=== PATIENT | male | born 1970 | race Caucasian/White ===

== ENCOUNTER 2021-11-28 13:48 | Outpatient (CLI) | payer BC, SELFPAY ==
[2021-11-28 14:03] LABS: Hematocrit 52.1 % (42.0-52.0); Hemoglobin 15.9 g/dL (14.0-18.0); Mean Corpuscular HGB Conc 30.5 g/dl (32-36); Mean Corpuscular Hemoglobin 27.7 pg (26-34); Mean Corpuscular Volume 90.9 fl (80-100); Mean Platelet Volume 10.8 fl (7.4-10.4); Platelet Count Result 205 k/mm3 (150-375); Red Blood Count 5.73 M/mm3 (4.6-6.20); Red Cell Distribution Width 13.5 % (11.5-14.5); White Blood Count 7.1 K/mm3 (4.5-10.0)
== END 2021-11-28 13:49 | disposition home or self-care (01) ==
LOC: ANHLAB 13:49
PROVIDERS: PCP Internal Medicine; Visit Provider Internal Medicine Hematology & Oncology
DX: D75.1 Secondary polycythemia (principal)
CPT/HCPCS: 36415; 85027

== ENCOUNTER 2023-06-03 13:47 | Outpatient (CLI) | payer BC, SELFPAY ==
[2023-06-03 14:01] LABS: Hematocrit 49.2 % (42.0-52.0); Hemoglobin 15.2 g/dL (14.0-18.0); Mean Corpuscular HGB Conc 30.9 g/dl (32-36); Mean Corpuscular Hemoglobin 27.6 pg (26-34); Mean Corpuscular Volume 89.3 fl (80-100); Mean Platelet Volume 10.2 fl (7.4-10.4); Platelet Count Result 207 k/mm3 (150-375); Red Blood Count 5.51 M/mm3 (4.6-6.20); Red Cell Distribution Width 13.7 % (11.5-14.5); White Blood Count 6.2 K/mm3 (4.5-10.0)
== END 2023-06-03 13:48 | disposition home or self-care (01) ==
LOC: ANHLAB 13:49
PROVIDERS: PCP Internal Medicine; Visit Provider Internal Medicine Hematology & Oncology
DX: D75.1 Secondary polycythemia (principal)
CPT/HCPCS: 36415; 85027

== ENCOUNTER 2023-08-18 12:13 | Emergency (ER) | payer BC, SELFPAY ==
[2023-08-18 12:24] VITALS: BP 167/86; PULSE 106; RESP 18; TEMP 37.5; O2SAT 98
[2023-08-18 13:10] LABS: Influenza A QL RT-PCR Negative (Negative); Influenza B QL RT-PCR Negative (Negative); RSV RNA, RT-PCR Negative (Negative); SARS-CoV-2 RNA PCR Negative (Negative)
[2023-08-18] MEDS: ALBUTEROL SULFATE NEB 2.5 MG/3 ML INH INHALATION (15:07)
--- NOTE | 2023-08-18 15:15 | ED.GENADULT ---
HPI - General Adult General Chief complaint: Upper Respiratory Infection Stated complaint: cough, fever, sore throat Time Seen by Provider: 08/18/23 14:15 History of Present Illness HPI narrative: 53-year-old male present to the emergency department for evaluation of COVID symptoms. Patient states he took 3 COVID test at home 2 of them were positive 1 of them was not. Patient states he has symptoms started on worsen through Saturday and Saturday. Patient states he was restless and at last night due to increased cough and congestion. Patient denies any shortness of breath denies any chest pain. Patient states he has a special needs son at home and was concerned about passing illness onto him. Related Data Home Medications Medication Instructions Recorded Confirmed Jardiance 25 mg PO DAILY 02/03/21 01/04/23 Tresiba U-100 Insulin 60 units BYMOUTH DAILY 02/03/21 01/04/23 Trulicity 1.5 mg PO WEEKLY 02/03/21 01/04/23 Vitamin D2 1.25 mg PO WEEKLY 02/03/21 01/04/23 aspirin 81 mg PO DAILY 02/03/21 01/04/23 atorvastatin 40 mg PO DAILY 02/03/21 01/04/23 glimepiride 2 mg PO DAILY 02/03/21 01/04/23 losartan 25 mg PO DAILY 02/03/21 01/04/23 icosapent ethyl 1 gram capsule 2 g PO BID 01/01/22 01/04/23 (Vascepa) Allergies Allergy/AdvReac Type Severity Reaction Status Date / Time codeine Allergy Unknown Jittery Verified 08/18/23 14:15 metformin Allergy Anaphylaxis Verified 08/18/23 14:15 Review of Systems Review of Systems: All systems reviewed & are unremarkable except as noted in HPI and below PMFSH Social History Social History Smoking status: Never smoker Gender identity (if verbalized by the patient): Male Spiritual care concerns: No Exam Narrative: APPEARANCE: Well appearing, no pain, no distress, well-nourished. HEAD: normocephalic, atraumatic. EYES: PERRLA/EOMI, conjunctivae clear. NOSE: Nasal congestion EARS:TMS clear with good light reflex. THROAT: Pharynx clear, no exudate. NECK: Supple. No adenopathy, no masses. RESPIRATORY: Airway patent, respirations nonlabored. Clear to auscultation bilaterally, no rales, rhonchi, wheezing. CARDIOVASCULAR: Regular rate and rhythm without murmurs rubs or gallops. ABDOMINAL: Soft, nontender, nondistended, normal bowel sounds MUSCULOSKELETAL: Moves all extremities. Strength/ROM intact, No edema, No calf tenderness. NEURO: Alert. Cranial nerves II through XII intact. Course Course Emergency Course: 53-year-old male presenting to the emergency department for evaluation of COVID symptoms. Patient's COVID test was negative here but patient states he did have 2 positive test at home. Patient was provided medications for symptom control and patient did request paxlovid, patient has taken this previously. Patient's COVID test was negative in the emergency department but saying he is very symptomatic and had 2 positive test at home patient was told to assume that he is COVID positive. Vital Signs Vital signs: Vital Signs Temperature 99.5 F 08/18/23 12:24 Pulse Rate 106 H 08/18/23 12:24 Respiratory Rate 18 08/18/23 12:24 Blood Pressure 167/86 H 08/18/23 12:24 Pulse Oximetry 98 08/18/23 12:24 Oxygen Delivery Room Air 08/18/23 12:24 Temperature 99.5 F 08/18/23 12:24 Pulse Rate 99 08/18/23 15:28 Respiratory Rate 20 08/18/23 15:28 Blood Pressure 167/86 H 08/18/23 12:24 Pulse Oximetry 99 08/18/23 15:28 Oxygen Delivery Room Air 08/18/23 14:14 Medical Decision Making Differential Diagnosis Differential Diagnosis: COVID, influenza, RSV, viral syndrome, pneumonia Vital Signs Vital Signs: Vital Signs Temperature 99.5 F 08/18/23 12:24 Pulse Rate 106 H 08/18/23 12:24 Respiratory Rate 18 08/18/23 12:24 Blood Pressure 167/86 H 08/18/23 12:24 Pulse Oximetry 98 08/18/23 12:24 Oxygen Delivery Room Air 08/18/23 12:24 Temperature 99.5 F 08/18/23 12:24 Pulse Rate 99 08/18/23 15:28 Respi
[2023-08-18] MEDS: KETOROLAC 30 MG/ML VIAL (*BKC) IM (15:23)
[2023-08-18] MEDS: BENZONATATE 100 MG CAPSULE PO (15:23)
[2023-08-18 15:28] VITALS: PULSE 99; RESP 20; O2SAT 99
== END 2023-08-18 15:35 | disposition home or self-care (01) ==
LOC: ANHED 15:33
PROVIDERS: Emergency Medicine; Emergency Provider Emergency Medicine; PCP Internal Medicine
DX: U07.1 COVID-19 (principal); J06.9 Acute upper respiratory infection, unspecified
CPT/HCPCS: 87637; 94640; 96372; 99283; A9270; J1885

== ENCOUNTER 2023-08-20 02:13 | Emergency (ER) | payer BC, SELFPAY ==
--- NOTE | ~2023-08-20 | XR_ITS ---
Portable chest x-ray Comparison: None Clinical History: Cough Findings: Possible minimal central congestive change and minimal bibasilar interstitial edema. No ot her consolidation or pleural effusion. Cardiomediastinal silhouette is stable. Bones and soft tissue s are unremarkable. Impression: Possible minimal central congestive change and minimal bibasilar interstitial edema. Reviewed, dictated and finalized at location . [facility] [employer] Impression: Possible minimal central congestive change and minimal bibasilar interstitial e elicia.
[2023-08-20 02:14] VITALS: BP 172/98; PULSE 110; RESP 16; TEMP 36.8; O2SAT 92
[2023-08-20 02:24] VITALS: PULSE 120; RESP 22; TEMP 36.8; O2SAT 94
[2023-08-20 02:25] VITALS: O2SAT 98
[2023-08-20 03:11] LABS: Influenza A QL RT-PCR Negative (Negative); Influenza B QL RT-PCR Negative (Negative); SARS-CoV-2 RNA PCR Negative (Negative)
[2023-08-20] MEDS: SODIUM CHLORIDE 0.9% IV 2,000 ML 999 ML IV CONT (03:35)
[2023-08-20 03:39] LABS: Strep Group A RT-PCR NOT DETECTED (Negative)
[2023-08-20] MEDS: KETOROLAC 15 MG/ML VIAL (*BKC) IV PUSH (03:39)
[2023-08-20 03:41] LABS: Basophils Percent Auto 0.5 % (0.2-1.2); Eosinophils Absolute Auto 0.1 K/mm3 (0-0.3); Eosinophils Percent Auto 0.9 % (0-4.4); Hematocrit 47.4 % (42.0-52.0); Hemoglobin 14.8 g/dL (14.0-18.0); Immature Granulocyte Absolute 0.02 K/mm3 (0.00-0.031); Immature Granulocyte Percent A 0.3 % (0-0.5); Lymphocytes Absolute Auto 1.22 K/mm3 (0.9-3.2); Lymphocytes Percent Auto 15.8 % (18.3-44.2); Mean Corpuscular HGB Conc 31.2 g/dl (32-36); Mean Corpuscular Hemoglobin 27.4 pg (26-34); Mean Corpuscular Volume 87.6 fl (80-100); Mean Platelet Volume 9.9 fl (7.4-10.4); Monocytes Absolute Auto 1.5 K/mm3 (0.1-0.6); Monocytes Percent Auto 19.1 % (2.6-8.5); Neutrophils Absolute Auto 4.9 K/mm3 (1.3-6.7); Neutrophils Percent Auto 63.4 % (45.5-73.1); Platelet Count Result 230 k/mm3 (150-375); Red Blood Count 5.41 M/mm3 (4.6-6.20); Red Cell Distribution Width 13.9 % (11.5-14.5); White Blood Count 7.7 K/mm3 (4.5-10.0)
[2023-08-20] MEDS: guaiFENesin/DEXTROMETHORPHAN 10 ML UDC PO (03:48)
[2023-08-20 03:53] LABS: Alanine Aminotransferase 28 U/L (6-50); Albumin Level 3.9 g/dL (3.5-5.1); Alkaline Phosphatase 79 U/L (38-126); Anion Gap 11 mmol/L (8-16); Aspartate Amino Transferase 25 U/L (17-59); Bilirubin,Total 0.8 mg/dL (0.2-1.3); Blood Urea Nitrogen 8 mg/dL (9-20); Carbon Dioxide 25 mmol/L (22-30); Chloride 102 mmol/L (98-107); Estimated Glomerular Filt Rate > 60; Glucose 139 mg/dL (65-110); Sodium 138 mmol/L (137-145)
[2023-08-20 04:50] VITALS: BP 163/96; PULSE 91; RESP 16; O2SAT 95
--- NOTE | 2023-08-20 05:06 | ED.GENADULT ---
HPI - General Adult General Chief complaint: Upper Respiratory Infection Stated complaint: upper resp Time Seen by Provider: 08/20/23 02:49 History of Present Illness HPI narrative: This is a 53-year-old male presenting with upper respiratory infection. Patient says that he is having symptoms since last Saturday. He was seen on Saturday here in the emergency department and diagnosed with a URI. There is some insert he may have COVID although the test here was negative. He was requested packs elevated as he believed he had COVID due to a indeterminate test at home. He has been taking Paxil and Tessalon Perles but feels like he is getting worse. He is still having cough which seems to be the main issue is is prevented him from sleeping. He is tolerating p.o. although he has not had much of an appetite. No chest pain difficulty breathing abdominal pain Related Data Home Medications Medication Instructions Recorded Confirmed Jardiance 25 mg PO DAILY 02/03/21 01/04/23 Tresiba U-100 Insulin 60 units BYMOUTH DAILY 02/03/21 01/04/23 Trulicity 1.5 mg PO WEEKLY 02/03/21 01/04/23 Vitamin D2 1.25 mg PO WEEKLY 02/03/21 01/04/23 aspirin 81 mg PO DAILY 02/03/21 01/04/23 atorvastatin 40 mg PO DAILY 02/03/21 01/04/23 glimepiride 2 mg PO DAILY 02/03/21 01/04/23 losartan 25 mg PO DAILY 02/03/21 01/04/23 icosapent ethyl 1 gram capsule 2 g PO BID 01/01/22 01/04/23 (Vascepa) Allergies Allergy/AdvReac Type Severity Reaction Status Date / Time codeine Allergy Unknown Jittery Verified 08/18/23 14:15 metformin Allergy Anaphylaxis Verified 08/18/23 14:15 [facility] Past Medical History Medical History Diabetes Hypertension Social History Social History Smoking status: Never smoker Gender identity (if verbalized by the patient): Male Spiritual care concerns: No Exam Narrative: APPEARANCE: No apparent distress. Coughing during the interview Head: atraumatic. EYES: EOMI, NOSE: Atraumatic NECK: Trachea midline RESPIRATORY: No increased rate of breathing, clear to auscultation CARDIOVASCULAR: RRR, no peripheral edema ABDOMINAL: Non-distended soft and MUSCULOSKELETAl: No obvious deformities NEURO: Alert. Moving 4/4 extremities SKIN:: Warm, dry. Normal color PSYCHIATRIC: Normal affect Course Vital Signs Vital signs: Vital Signs Temperature 98.3 F 08/20/23 02:14 Pulse Rate 110 H 08/20/23 02:14 Respiratory Rate 16 08/20/23 02:14 Blood Pressure 172/98 H 08/20/23 02:14 Pulse Oximetry 92 08/20/23 02:14 Oxygen Delivery Room Air 08/20/23 02:14 Temperature 98.2 F 08/20/23 02:24 Pulse Rate 91 08/20/23 04:50 Respiratory Rate 16 08/20/23 04:50 Blood Pressure 163/96 H 08/20/23 04:50 Pulse Oximetry 95 08/20/23 04:50 Oxygen Delivery Room Air 08/20/23 02:25 Medical Decision Making [facility] Narrative Medical decision making narrative: -Course: 53-year-old male presenting with URI symptoms. Viral swab still negative. Chest x-ray shows some possible congestive changes and atelectasis.. Lab work normal. He was given some fluids Toradol and cough syrup with improvement symptoms. Patient discharged. 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 Viral swabs negative. Strep negative -Interventions: 2 L normal saline, Toradol, Robitussin -Shared decision making / Disposition: Discharged Vital Signs Vital Signs: Vital Signs Temperature 98.3 F 08/20/23 02:14 Pulse Rate 110 H 08/20/23 02:14 Resp
[2023-08-20 06:32] VITALS: BP 142/89; PULSE 88; RESP 16; TEMP 36.6; O2SAT 99
== END 2023-08-20 06:33 | disposition home or self-care (01) ==
PROVIDERS: Emergency Provider Emergency Medicine; PCP Internal Medicine
DX: J06.9 Acute upper respiratory infection, unspecified (principal); E11.9 Type 2 diabetes mellitus without complications; I10 Essential (primary) hypertension; Z20.822 Contact with and (suspected) exposure to COVID-19
CPT/HCPCS: 36415; 71045; 80053; 85025; 87636; 87651; 96361; 96374; 99284; A9270; J1885; J7030

== ENCOUNTER 2025-01-01 11:46 | Outpatient (CLI) | payer BC, SELFPAY ==
--- NOTE | ~2025-01-01 | US_ITS ---
EXAMINATION:US venous doppler LE LT INDICATION:Left leg pain TECHNIQUE: Multiple grayscale, color flow and Doppler images of the left lower extremity deep venous systems were obtained and reviewed. COMPARISON:No prior studies for comparison. FINDINGS: The common femoral, superficial femoral and popliteal veins demonstrate normal respiratory variation, augmentation and compressibility. Color flow is also seen within the posterior tibial, pe roneal, greater saphenous and profunda veins. IMPRESSION: 1: No lower extremity deep venous thrombosis. Reviewed, dictated and finalized at location A.
== END 2025-01-01 11:47 | disposition home or self-care (01) ==
LOC: MICIMG 11:48
PROVIDERS: PCP Internal Medicine; Visit Provider Internal Medicine
DX: M79.89 Other specified soft tissue disorders (principal); M79.606 Pain in leg, unspecified
CPT/HCPCS: 93971

== ENCOUNTER 2025-02-22 09:01 | Outpatient (CLI) | payer BC, SELFPAY ==
--- NOTE | ~2025-02-22 | US_ITS ---
Ankle Brachial Index with Ultrasound Dopplers and Pulse Volume Recordings Technique: Pressures in the arm and lower extremity were obtained. Additionally, arterial and pulse v olume waveforms were obtained bilaterally. Findings: Segmental pressures Right posterior tibial: 142 Right dorsalis pedis: 133 Left posterior tibial: 142 Left dorsalis pedis: 140 There are biphasic waveforms bilaterally. HEBER Right 1.06 Left 1.06 TBI Right 1.07 Left 1.11 Impression: No significant peripheral arterial disease as detected by segmental pressures and Doppler , which may be artificially elevated secondary to patient's type 2 diabetes. Reviewed, dictated and finalized at location A. Impression: No significant peripheral arterial disease as detected by segmental pressures and Doppler, which may be artificially elevated secondary to patient 's type 2 diabetes.
--- OUTSIDE RECORDS SUMMARY | 2025-02-22 09:13 | XMS_ITS | Data Portability ---
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 Name Role Phone NINOSKA SHAVER Primary Care Provider NINOSKA SHAVER Referring Provider Assessment Encounter Date Assessment Date Assessment LastModified by Organization Details LastModified Time 01/27/2024 01/27/2024 11/09/2022: Dr Ross TSH/FT4: WNL CMP: Gluc 129 Lipids: WNL A1C 8.5 06/03/2023: Dr Aleman [facility] 08/20/2023: [facility] CMP: Gluc 139 01/23/2024: A1C 7.9 Gluc 121 PSA 1.0 Not available 01/27/2024 16:20:38 05/04/2024 05/04/2024 11/09/2022: Dr Ross TSH/FT4: WNL CMP: Gluc 129 Lipids: WNL A1C 8.5 06/03/2023: Dr Aleman CBC: [facility] 30.9 08/20/2023: [facility] CMP: Gluc 139 01/23/2024: A1C 7.9 Gluc 121 PSA 1.0 Not available 05/03/2024 15:35:46 09/17/2024 09/17/2024 Assessment: Very severe OSAHS, AHI = 48 Plan: The following were reviewed and explained to the patient: [facility] home sleep study 05/21/17 AHI = 28, supine AHI = 44 [facility] home sleep study 02/04/19 AHI = 48 PAP compliance downloaded and interpreted x 20 minutes. Data reviewed and explained to the patient. Average apnea/hypopnea index (AHI) is 4.3. Patient used PAP > 4 hours 70% of the time. PAP is set at 7-12 cmH2O. PAP will be reset at 8-12 cmH2O. Keep ramp off. Keep EPR +1 time broker. Keep humidifier level at 4. Oxygen supplementation: none Patient is benefiting from PAP therapy. Encouraged patient to maintain PAP use more than 70% of the time. Statement of PAP use and benefits will be sent to the home care store. Educated the patient on problems and solutions associated with positive airway pressure (PAP) use. Difficulty tolerating pressure, mask leaks, intolerance of interface, nasal congestion, claustrophobic response, dry mouth, and unintentional mask removal during sleep were covered. Dry mouth is a normal occurrence for people who just start out on PAP therapy because they are not used to air blowing in to the throat to hold open. Dry mouth is exacerbated for people who wear nasal PAP mask and whose jaw drops open during sleep. Not only does this create a much less efficient therapy because of leakage, it also causes dry mouth. There are a couple solutions to help prevent this type of problem. A simple solution would be to wear a chinstrap which essentially holds the jaw in place. A second solution would be a switch to a full face mask which covers both the nose and mouth. Although this is another easy solution, using a full face mask for some could seem claustrophobic or confining. There is no silver bullet solution as no single mask is right for everybody. Sometimes it takes a bit of experimentation to find a PAP mask which best meets the patient's needs as well as fits comfortably. Another tactic is to use a humidifier on your PAP machine. Most new PAP machines have integrated humidifiers. Humidification is hoffman when dealing with symptoms of dry mouth because the humidifier can supply both warm and room temperate air. Even a small amount of humidity in the airflow will help nasal passages to stay hydrated. If a person is using both a full face mask and a PAP machine with a heated humidifier and is still experiencing dry mouth, an ill-fitted PAP mask might be causing the problem. Leakage can be caused by a mask that is to large or small, the wrong style mask, the cushion is degraded or simply because the mask's straps aren't adjusted correctly. If leakage occurs, dry air from the room can leak in while humidification escapes. The result is reduced humidification within the circuit and resulting in dry throat and mouth. Finally, beyond factors involving the PAP machine and mask, dry mouth can also be caused or worsened by dehydration. The general recommendation to during eight 8 oz. glasses of water a day might be too little for many people. When people drink large amounts of coffee or other caffeine beverages, or sweat a lot during the day, making sure to rehydrate is an important part of PAP therapy. Patient tends to take of the PAP mask during sleep. We reassured patient that this is common. We address all other areas of headgear/nasal interface problems, especially nasal congestion. Patient can use humidification +/- chinstrap, put low-pressure alarm on blower unit to awaken patient to reposition mask and set alarm at night for patient to check headgear. Provided the patient with a list of local home care stores where positive airway pressure (PAP) units, accoutrement, and services are available. Home care store selection is based on patient's insurance carrier. Patient will setup an appointment with [facility] for supplies and pressure adjustments. A major predictor of success with use of PAP is follow-up with both the respiratory supplier and the treating physician. The download results can show the treating physician information about adherence to treatment, residual AHI while on treatment and presence of large mask leakage. This information is especially helpful if the patient has residual sleepiness despite treatment. General information on sleep disordered breathing, evaluation of sleep disordered breathing, treatment with PAP therapy, and living with PAP therapy were covered. We discussed with the patient the impact of weight on: Sleep disordered breathing Hypertension Hyperlipidemia DM Low back pain Left plantar fasciitis We discussed with the patient the benefit of PAP therapy on: Sleep disordered breathing Erythrocytosis Hypertension DM Educated the patient on sleep hygiene measures. Relaxing rituals to rest easy, understanding foods with positive and negative impact on sleep, creating a peaceful sleep environment, timing of exercise, using herbal sleep aids, and practicing sleep-friendly meditation were covered. To determine how much sleep is needed, the patient will assess where he falls on the spectrum, examine what lifestyle factors such as work schedules and stress are affecting the quality and quantity of sleep. In general, adults need 7-9 hours of sleep. Educated the patient regarding foods that promote sleep. These include but are not limited to cherries, bananas, toast, oatmeal, and warm milk. Educated the patient regarding foods and drinks to avoid before bedtime. These include but are not limited to aged cheese, chocolate, spicy foods, tomato-based sauces, soy, ginseng tea and processed meat. Advocated influenza vaccination annually and pneumonia vaccination JOANA. Advocated weight loss through diet and exercise. Patient's ideal body weight according to height and gender is up to 205 lbs. Encouraged patient to adjust caloric intake to maintain/achieve ideal body weight, emphasizing on fruits, vegetables, whole grains, and fat-free or low-fat products. These include lean meats, poultry, fish, beans, eggs, and nuts and foods that are low in saturated fats, trans-fats, cholesterol, salt (sodium), and glycemic index. Stressed the importance of regular exercise up to the patient's capacity limits. In this case, we recommend 20 min daily walking, 2 days a week of resistance training. Patient to monitor BP daily and bring records to PCP for further management. Follow-up: 1 year, August 2025 [email or web address] Not available 09/17/2024 11:50:19 09/21/2024 09/21/2024 11/09/2022: Dr Ross TSH/FT4: WNL CMP: Gluc 129 Lipids: WNL A1C 8.5 06/03/2023: Dr Aleman CBC: [facility] 30.9 08/20/2023: [facility] CMP: Gluc 139 01/23/2024: A1C 7.9 Gluc 121 PSA 1.0 05/04/2024: A1C 7.2 Not available 09/21/2024 12:27:07 02/03/2025 02/03/2025 11/09/2022: Dr Ross TSH/FT4: WNL CMP: Gluc 129 Lipids: WNL A1C 8.5 06/03/2023: Dr Aleman CBC: [facility] 30.9 08/20/2023: [facility] CMP: Gluc 139 01/23/2024: A1C 7.9 Gluc 121 PSA 1.0 05/04/2024: A1C 7.2 12/15/2024: A1C 7.0H Not available 02/03/2025 14:33:48 Plan of Treatment Reminders Order Date Submit Date Provider Last Modified By Organization Details Last Modified Time Details Appointments Any 15 2024 02:15P M Ninoska lynch MD Not available Not available Not available Any 2025 02:00P M Flako Martinez MD Not available Not available Not available Lab vitamin D, 25-hydrox y, total, serum 2024 025 [facility], [address], [place], [address], 02/03/2025 15:41:49 HbA1c (hemoglob in A1c), blood 2024 025 [place] [facility], [address], [place], [address], 02/03/2025 15:41:48 microalbu min, urine 2024 025 [place] [facility], [address], [place], [address], 02/03/2025 15:41:50 lipid panel, serum 2024 025 [facility], [address], [place], [address], 02/03/2025 15:41:48 CBC w/ auto diff 2024 025 [place] [facility], [address], [place], [address], 02/03/2025 15:41:48 CMP, serum or plasma 2024 025 [place] [facility], [address], [place], [address], 02/03/2025 15:41:49 T4, free, serum 2024 025 [facility], [address], [place], [address], 02/03/2025 15:41:50 TSH, ultra-sen sitive, serum 2024 025 [facility], [address], [place], [address], 02/03/2025 15:41:50 vitamin B12 + folate, serum or blood 2024 025 [facility], [address], [place], [address], 02/03/2025 15:41:49 lipid panel, serum 2024 025 [facility], [address], [place], [address], 12/16/2024 11:44:07 CBC w/ auto diff 2024 025 [facility], [address], [place], [address], 12/16/2024 11:44:05 CMP, serum or plasma 2024 025 [facility], [address], [place], [address], 12/16/2024 11:44:06 T4, free, serum 2024 025 [facility], [address], [place], [address], 12/16/2024 11:44:10 TSH, ultra-sen sitive, serum 2024 025 [facility], [address], [place], [address], 12/16/2024 11:44:11 vitamin D, 25-hydrox y, total, serum 2024 025 [facility], [address], [place], [address], 12/16/2024 11:44:12 noninvasi ve colorecta l cancer DNA + occult blood screening , QL, stool 2024 025 [facility] [address], [address], [place], [address], 09/21/2024 12:28:11 HbA1c (hemoglob in A1c), blood 2024 025 [place] [facility], [address], [place], [address], 12/16/2024 11:44:09 microalbu min, urine 2024 025 [facility], [address], [place], [address], 12/16/2024 11:44:13 vitamin B12 + folate, serum or blood 2024 025 [facility], [address], [place], [address], 12/16/2024 11:44:03 lipid panel, serum 2023 024 [place] [address] [facility], [address], [place], [address], 11/03/2024 11:14:14 CBC w/ auto diff 2023 024 [facility], [address], [place], [address], 05/05/2024 08:54:17 CMP, serum or plasma [address]23 [address], [address], [place], [address], 11/03/2024 11:14:14 T4, free, serum 2023 024 [place] [address] [facility], [address], [place], [address], 11/03/2024 11:14:14 TSH, ultra-sen sitive, serum 2023 024 [place] [address] [facility], [address], [place], [address], 11/03/2024 11:14:14 vitamin D, 25-hydrox y, total, serum 2023 024 [facility], [address], [place], [address], 11/03/2024 11:14:14 noninvasi ve colorecta l cancer DNA + occult blood screening , QL, stool 2023 024 [email or web address] (Cologuard Orders Only), [address], [address], [place], [address], 05/18/2024 10:01:49 HbA1c (hemoglob in A1c), blood 2023 024 [facility], [address], [place], [address], 11/03/2024 11:14:13 microalbu min, urine 2023 024 [facility], [address], [place], [address], 11/03/2024 11:14:14 vitamin B12 + folate, serum or blood 2023 024 [facility], [address], [place], [address], 05/05/2024 16:27:33 vitamin D, 25-hydrox y, total, serum 2023 024 [email or web address] [facility], [address], [place], [address], 07/27/2024 09:44:25 HbA1c (hemoglob in A1c), blood 2023 024 [place] [address] [facility], [address], [place], [address], 07/27/2024 09:44:24 microalbu min, urine 2023 024 [place] [address] [facility], [address], [place], [address], 07/27/2024 09:44:24 lipid panel, serum 2023 024 [place] [address] [facility], [address], [place], [address], 07/27/2024 09:44:24 CBC w/ auto diff 2023 024 [place] [address] [facility], [address], [place], [address], 07/27/2024 09:44:24 CMP, serum or plasma 2023 024 [place] [address] [facility], [address], [place], [address], 07/27/2024 09:44:24 T4, free, serum 2023 024 [place] [address] [facility], [address], [place], [address], 07/27/2024 09:44:24 TSH, ultra-sen sitive, serum 2023 024 [place] [address] [facility], [address], [place], [address], 07/27/2024 09:44:25 Referral hematolog ist referral - Please call patient to schedule an appointme nt. Thank you. 2024 025 MEHDI Aleman MD, [address], [place], [address], 02/05/2025 10:01:11 podiatris t referral - Please call patient to schedule an appointme nt Thank you. 2024 025 NIC Doss D[facility], [address], [address], [place], [address], 02/08/2025 09:53:39 hematolog ist referral - Please call patient to schedule an appointme nt. Thank you. 2024 025 MEHDI Aleman MD, [address], [place], [address], 09/21/2024 14:00:49 podiatris t referral - Please call patient to schedule an appointme nt Thank you. 2024 025 NIC Doss D[facility], [address], [address], [place], [address], 09/21/2024 16:11:47 hematolog ist referral 2023 024 [email or web address] Jose R Aleman MD, [address], [place], [address], 11/02/2024 08:35:22 podiatris t referral 2023 024 [email or web address] Jose R Doss DPM, [address], [address], [place], [address], 11/02/2024 08:35:21 pulmonolo gist referral 2023 024 sudha Martinez MD, [address], [place], [address], 02/26/2024 11:31:10 hematolog ist referral 2023 024 Stephane Aleman MD, [address], [place], [address], 09/28/2024 08:49:38 podiatris t referral 2023 024 Pk Doss DPM, [address], [address], [place], [address], 07/27/2024 09:44:40 Procedures colonosco py screening (PROC) 2023 024 [email or web address] Annette Toure MD, [address], [address], [place], [address], 01/25/2025 08:58:30 Surgeries None recorded. Imaging None recorded. Medication Orders Mounjaro 10 mg/0.5 mL subcutane ous pen injector 2023 [email or web address] [id number], [address] [place], [address], 05/04/2024 15:15:26 Patient TargetsNo targets recorded. 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 Referral for Type 2 diabetes mellitus without complication Referring Physician: Ninoska Shaver, Internal Medicine, Encounter Date: 01/27/2024 [employer] Referral for O bstructive sleep apnea syndrome Referring Physician: Ninoska Shaver Internal Medicine, Encounter Date: 01/27/2024 Referring Physician: Ninoska Shaver Internal Medicine, Encounter Date: 01/27/2024 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 Referring Physician: Ninoska Shaver Internal Medicine, Encounter Date: 09/21/2024 Please call patient to sched ule an appointment. Thank you. 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 Referring Physician: Ninoska Shaver Internal Medicine, Encounter Date: 02/03/2025 Please call patient to sched ule an appointment. Thank you. Referring Physician: Ninoska Shaver Internal Medicine, Encounter Date: 02/03/2025 Results Created Date Observation Date Name Description Value Unit Range Abnormal Flag Note LastModifiedBy Organization Detail LastModifiedTime 01/02/20 25 01/01/2025 imagi ng/di agnos tic resul t No observ ation record ed. [facility] [address], [place], [address], 01/01/2025 14:10:08 Result Notes None recorded. 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 44687423360 07 Active 2021 Not Available [facility] 3 12:33:25 Hypertens etelvina disorder 53021985 Active 2016 Not Available [facility] 3 12:33:25 Body mass index 40+ - severely obese 096229134 Active 2018 Not Available [facility] 3 12:33:25 Obstructi ve sleep apnea syndrome 14265483 Active 2020 Not Available [facility] 3 12:33:25 Obstructi ve sleep apnea syndrome 21537608 Completed 201811/02/2020 Not Available [facility] 3 01:11:43 COVID-19 558517003 Active 2021 Not Available [facility] 3 12:33:25 Thyroid nodule 807465989 Active 2022 Not Available [facility] 3 12:33:25 Erythrocy tosis 014212884 Active 2022 Not Available [facility] 3 12:33:25 Vitamin B12 deficienc y (non anemic) 40881323 Active 2022 Not Available [facility] 3 12:33:25 Periphera l venous insuffici ency 61234700 Active 2022 Pk Doss DPM [address], [address], [place], [address] , [employer] 3 15:29:54 Vitamin D deficienc y 11388191 Active 2023 Ninoska kang MD [address], [address], [place], [address] , [employer] 4 11:38:43 Mixed hyperlipi demia 613106525 Active 2023 Naya Mcdowell MA null, [employer] 4 10:53:21 Essential hypertens ion 36611165 Active 2024 Ninoska kang MD [address], [address], [place], [address] , [employer] 5 18:56:33 Hyperlipi demia 32492724 Active 2024 Ninoska kang MD [address] [facility], [address], [place], [address] , [facility] [employer] [facility] 5 18:56:33 Type 2 diabetes mellitus without complicat ion 711515549 Active 2024 Ninoska kang MD [address] [facility], [address], [place], [address] , [facility] [employer] [facility] 5 18:56:33 Serum vitamin B12 below reference range 236700306 Active 2024 Ninoska kang MD [address] [facility], [address], [place], [address] , [facility] [employer] [facility] 5 18:56:35 Cough 08085880 Active 2024 ESTUARDO Bush, [facility] [employer] [facility] 5 15:51:16 Notes:Medical History: COVID infections 07/2022, 07/2023, 05/2024 Rhinitis Thyroid nodule Erythrocytosis Obesity with very severe OSAHS, AHI = 48, 02/04/19, on autoCPAP c/o IVRC Hypertension Mixed hyperlipidemia T2DM with neuropathy Vit B12 deficiency Vit D deficiency Low back pain Left plantar fasciitis Procedure History: T&A 1974 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 Procedures Surgical History Date Name Laterality Status Provider Name and Address Organization Details Recorded Time 06/17/20 23 Nail Debridement completed Pk Doss DPM [address] [facility], [address] [address], [place], [address], [facility] [employer] [facility] 06/17/2023 15:30:15 Tonsillectomy completed Not Available [facility] 10/17/2022 01:05:31 Imaging Results None recorded. Procedure Notes None recorded. Medical Equipment None Reported. Allergies Allergen ID Allergen Name Allergen Category Reaction Reaction Severity Criticality Documentation Date Start Date Code Code System Note Provider Name and Address Organization Details Recorded Time 2012 metformin medicatio n hives moderate Not available 10/17/20222014 6809 RxNorm lips swell Not Available [facility] 3 01:20:38 Medications Name Sig Start Date Stop Date Status Note LastModified by Organization Details LastModified Time losartan 50 mg tablet Take 1 tablet every day by oral route. 07/21 completed Not Available Not Available Not Available cyclobenza lety 10 mg tablet TAKE 1 TABLET EVERY NIGHT BY ORAL ROUTE NEEDED, NO ALCOHOL DRIVING OR WITH SEDATING MEDICATI ONS active Not Available Not Available No t Available atorvastat in 40 mg tablet TAKE 1 TABLET BY MOUTH EVERY DAY active Not Available Not Available No t Available metformin 500 mg tablet Take 2 tablets twice a day by oral route. active Not Available Not Available No t Available prednisone 10 mg tablet active Not Available Not Available Not Available atorvastat in 20 mg tablet TAKE 1 TABLET BY MOUTH EVERY DAY 10/27 completed Not Available Not Available Not Available azithromyc in 250 mg tablet TAKE 2 TABLETS BY MOUTH TODAY, THEN TAKE 1 TABLET DAILY FOR 4 DAYS DIRECTED 02/03 completed Not Available Not Available Not Available ibuprofen 800 mg tablet active Not Available Not Available Not Available ampicillin 500 mg capsule active Not Available Not Available Not Available hydrocodon e 5 mg-acetami nophen 325 mg tablet active Not Available Not Available No t Available meloxicam 15 mg tablet TAKE 1 TABLET BY MOUTH EVERY OTHER DAY NEEDED active Not Available Not Available No t Available [employer] Lancets 28 gauge TEST TWICE A DAY 09/18 completed Not Available Not Available Not Available tramadol 50 mg tablet TAKE 1 TABLET BY MOUTH TWICE A DAY NEEDED ONLY 06/26 completed Not Available Not Available Not Available glimepirid e 2 mg tablet TAKE 1 TABLET BY MOUTH TWICE A DAY WITH FOOD active Not Available Not Available No t Available glimepirid e 1 mg tablet TAKE 2 TABLETS BY MOUTH TWICE A DAY BEFORE MEALS 08/24 completed Not Available Not Available Not Available dexamethas one 1 mg tablet TAKE 1 TABLET NEEDED BY ORAL ROUTE AT BEDTIME FOR 1 DAY. 08/26 completed Not Available Not Available Not Available benzonatat e 100 mg capsule 09/06 completed Not Available Not Available Not Available cyanocobal garcia (vit B-12) 1,000 mcg/mL injection solution INJECT 1 ML EVERY WEEK BY SUBCUTAN EOUS ROUTE IN THE MORNING 02/03 completed Not Available Not Available Not Available hydrochlor othiazide 12.5 mg capsule TAKE 1 CAPSULE BY MOUTH EVERY DAY 08/15 completed Not Available Not Available Not Available diclofenac sodium 75 mg tablet,del ayed release 11/08 completed Not Available Not Available Not Available ergocalcif jack (vitamin D2) 1,250 mcg (50,000 unit) capsule TAKE 1 CAPSULE BY MOUTH ONE TIME PER WEEK 05/04 completed Not Available Not Available Not Available oxycodone- acetaminop hen 7.5 mg-325 mg tablet active Not Available Not Available Not Available methylpred nisolone 4 mg tablets in a dose pack TAKE 6 TABLETS ON DAY 1 DIRECTED ON PACKAGE AND DECREASE BY 1 TAB EACH DAY FOR A TOTAL OF 6 DAYS 05/04 completed Not Available Not Available Not Available albuterol sulfate HFA 90 mcg/actuat ion aerosol inhaler 09/18 completed Not Available Not Available Not Available losartan 50 mg-hydroch lorothiazi de 12.5 mg tablet TAKE 1 TABLET BY MOUTH EVERY DAY active Not Available Not Available No t Available pioglitazo ne 30 mg tablet TAKE 1 TABLET BY MOUTH EVERY DAY IN THE MORNING active Not Available Not Available No t Available ketoconazo le 2 % topical cream APPLY TO THE AFFECTED AREA(S) twice daily 09/06 completed taken as needed Not Available Not Available Not Available losartan 100 mg tablet TAKE 1/2 TABLET BY MOUTH DAILY 08/15 completed Not Available Not Available Not Available amoxicilli n 875 mg-potassi um clavulanat e 125 mg tablet TAKE 1 TABLET BY MOUTH EVERY 12 HOURS FOR 7 DAYS 09/06 completed Not Available Not Available Not Available BD Ultra-Fine Mini Pen Needle 31 gauge x 3/16 USE WITH TRESIBA AND TRULICIT Y (ONE NEEDLE PER MEDICATI ON DAILY) 09/06 completed Not Available Not Available Not Available BD Ultra-Fine Short Pen Needle 31 gauge x 5/16 USE TO INJECT TRESIBA ONCE A DAY active Not Available Not Available No t Available fenofibrat e nanocrysta llized 145 mg tablet TAKE 1 TABLET BY MOUTH EVERY DAY 04/18 completed Not Available Not Available Not Available Januvia 100 mg tablet Take 1 tablet every day by oral route. active Not Available Not Available No t Available NovoFine 30 30 gauge x 1/3 needle USE ONCE DAILY FOR INJECTIO N 12/17 completed Not Available Not Available Not Available FreeStyle Lite Strips TEST TWICE A DAY 09/18 completed Not Available Not Available Not Available FreeStyle [place] Lite kit TEST TWICE A DAY 09/18 completed Not Available Not Available Not Available Zipsor 25 mg capsule TAKE ONE CAPSULE BY MOUTH TWICE DAILY NEEDED* MUST TAKE WITH FOOD 05/03 completed Not Available Not Available Not Available icosapent ethyl 1 gram capsule TAKE 2 CAPSULES BY MOUTH TWICE A DAY active Not Available Not Available No t Available BD Insulin Syringe Ultra-Fine 1 mL 31 gauge x 5/16 INJECT B12 INTO THE SKIN ONCE WEEKLY X 90 DAYS 08/25 completed Not Available Not Available Not Available Victoza 3-Ricky 0.6 mg/0.1 mL (18 mg/3 mL) subcutaneo us pen injector active Not Available Not Available Not Available Levemir FlexTouch U-100 Insulin 100 unit/mL (3 mL) subcutaneo us pen INJECT 30 UNITS EVERY DAY BY SUBCUTAN EOUS ROUTE. 04/30 completed Not Available Not Available Not Available Jardiance 25 mg tablet TAKE 1 TABLET BY MOUTH EVERY DAY IN THE MORNING active Not Available Not Available No t Available Trulicity 1.5 mg/0.5 mL subcutaneo us pen injector INJECT 1.5 MG EVERY WEEK BY SUBCUTAN EOUS ROUTE 11/13 completed Not Available Not Available Not Available Trulicity 0.75 mg/0.5 mL subcutaneo us pen injector Inject 0.5 mL every week by subcutan eous route. active Not Available Not Available No t Available Tresiba FlexTouch U-200 insulin 200 unit/mL (3 mL) subcutaneo us pen INJECT 60 UNIT(S) EVERY DAY BY SUBCUTAN EOUS ROUTE AT BEDTIME active Not Available Not Available No t Available Basaglar KwikPen U-100 Insulin 100 unit/mL (3 mL) subcutaneo us INJECT 30 UNITS SUBCUTAN EOUSLY EVERY DAY 01/13 completed Not Available Not Available Not Available Ozempic 0.25 mg or 0.5 mg (2 mg/1.5 mL) subcutaneo us pen injector Inject by subcutan eous route for 30 days. 11/13 completed Not Available Not Available Not Available Afluria Qd 2019-20 (36 mos up)(PF)60 mcg (15 mcg x4)/0.5 mL IM syringe active Not Available Not Available N ot Available Trulicity 3 mg/0.5 mL subcutaneo us pen injector Inject 3 mg every week by subcutan eous route in the morning for 90 days. 11/13 completed Not Available Not Available Not Available BinaxNOW COVID-19 Ag Self Test kit FOLLOW INSTRUCT IONS INCLUDED WITH THE PACKAGE. 11/13 completed Not Available Not Available Not Available Paxlovid 300 mg (150 mg x 2)-100 mg tablets in a dose pack TAKE 3 TABLETS BY MOUTH TWICE A DAY FOR 5 DAYS 08/25 completed Not Available Not Available Not Available Mounjaro 7.5 mg/0.5 mL subcutaneo us pen injector INJECT 7.5 MG EVERY WEEK BY SUBCUTAN EOUS ROUTE AT DINNER FOR 30 DAYS. 01/26 completed Not Available Not Available Not Available Mounjaro 5 mg/0.5 mL subcutaneo us pen injector INJECT 5MG EVERY WEEK BY SUBCUTAN EOUS ROUTE AT DINNER active Not Available Not Available No t Available Mounjaro 15 mg/0.5 mL subcutaneo us pen injector INJECT 1 SYRINGE SUBCUTAN EOUSLY ONCE A WEEK active Not Available Not Available No t Available Mounjaro 10 mg/0.5 mL subcutaneo us pen injector INJECT 10 MG EVERY WEEK BY SUBCUTAN EOUS ROUTE FOR 90 DAYS. 05/04 completed Not Available Not Available Not Available Mounjaro 12.5 mg/0.5 mL subcutaneo us pen injector 08/25 completed Not Available Not Available Not Available Mounjaro 2.5 mg/0.5 mL subcutaneo us pen injector Inject 2.5 mg every week by subcutan eous route at dinner for 30 days. 11/13 completed Not Available Not Available Not Available Vitals Date Recorded Heart rate Respiratory rate Provider N dana and Address Organization Details Last Updated DateTime 09/17/2024 77 /min 17 /min Flako Martinez MD [address] [facility], [facility] [address], [place], [address], MD - [facility] [email or web address] [facility] 09/17/2024 11:42:00 Date Recorded Body height Body mass index (BMI) Body weight Body temperature Heart rate Oxygen saturation Oxygen saturation in Arterial blood by Pulse oximetry Systolic And Diastolic Provider Name and Address Organization Details Last Updated DateTime 5 187.96 cm 45.6 kg/m2 836242. 29 g 98.4 [degF] 77 /min 96 % 96 % 128/86 mm[Hg] Faby Kerr MA [facility] [employer] [facility] 5 10:51:13 Date Recorded Body height Body mass index (BMI) Body weight Body temperature Heart rate Systolic And Diastolic Provider Name and Address Organization Details Last Updated DateTime 5 187.96 cm 44.4 kg/m2 345058. 96 g 97.7 [degF] 72 /min 130/78 mm[Hg] ESTUARDO Bush [facility] [employer] [facility] 5 12:14:22 Date Recorded Body height Body mass index (BMI) Body weight Body temperature Heart rate Oxygen saturation Oxygen saturation in Arterial blood by Pulse oximetry Systolic And Diastolic Provider Name and Address Organization Details Last Updated DateTime 4 187.96 cm 44.3 kg/m2 138392. 37 g 96 [degF] 81 /min 96 % 96 % 124/60 mm[Hg] Maira Holland MA [facility] [employer] [facility] 4 16:01:29 Date Recorded Body height Body mass index (BMI) Body weight Body temperature Heart rate Oxygen saturation Oxygen saturation in Arterial blood by Pulse oximetry Systolic And Diastolic Provider Name and Address Organization Details Last Updated DateTime 5 187.96 cm 44.4 kg/m2 135631. 96 g 98.2 [degF] 85 /min 96 % 96 % 128/78 mm[Hg] Maira Holland MA [facility] [employer] [facility] 5 15:15:25 Date Recorded Body height Body mass index (BMI) Body weight Body temperature Heart rate Respiratory rate Oxygen saturation Oxygen saturation in Arterial blood by Pulse oximetry Systolic And Diastolic Provider Name and Address Organization Details Last Updated DateTime 4 187.96 cm 45.2 kg/m2 791542. 51 g 97.8 [degF] 95 /min 18 /min 95 % 95 % 132/74 mm[Hg] Abraham Corona LPN [place] - [facility] 4 15:12:38 Social History Question Answer Notes LastModified by Organizat ion Details LastModified Time Tobacco Smoking Status Never Smoker Not Available [employer] 10/17/2022 00:59:27 Do You Have An Advance Directive? No [id number] Information not available 10/17/2022 What Is Your Level Of Caffeine Consumption? Occasional MIGRATION.83166 [id number] Information not available 10/17/2022 How Much Tobacco Do You Chew? None MIGRATION.10721 [id number] Information not available 10/17/2022 In The 14 Days Before Symptom Onset, Have You Had Close Contact With A Laboratory-confi rmed COVID-19 While That Case Was Ill? No MIGRATION.[id number] Information not available 10/17/2022 In The 14 Days Before Symptom Onset, Have You Had Close Contact With A Person Who Is Under Investigation For COVID-19 While That Person Was Ill? No MIGRATION.[id number] Information not available 10/17/2022 What Type Of Diet Are You Following? DIABETIC MIGRATION.56558 01979 Information not available 10/17/2022 Which Illicit Or Recreational Drugs Have You Used? None MIGRATION.78045 05707 Information not available 10/17/2022 Do You Have An Electrostatic Air Filter? No Information not available 09/18/2023 Have There Been Any Changes To Your Family Or Social Situation? No Information not available 01/27/2024 Do You Have A Humidifier? No Information not available 09/18/2023 Where Do You Live? SingleLevelHouse Information not available 01/27/2024 Do You Have A Medical Power Of Material Cutter? No MIGRATION.86608 [id number] Information not available 10/17/2022 Do You Have Moisture Problems In Your Home? No Information not available 09/18/2023 What Was The Date Of Your Most Recent Tobacco Screening? 02/03/2025 Information not available 02/03/2025 Do You Have Any Pets? Yes 3 Dogs MIGRATION.14580 04224 Information not available 10/17/2022 Do You Use Your Seat Belt Or Car Seat Routinely? Yes Information not available 08/26/2023 Do You Have Smoke And Carbon Monoxide Detectors In Your Home? Yes Information not available 09/18/2023 Are You Passively Exposed To Smoke? No Information not available 09/18/2023 Are There Any Smokers In Your House? No Information not available 01/27/2024 How Much Tobacco Do You Smoke? No MIGRATION.44504 [id number] Information not available 10/17/2022 Do You Use Sunscreen Routinely? Yes MIGRATION.22320 19439 Information not available 10/17/2022 Has Tobacco Cessation Counseling Been Provided? No MIGRATION.72045 31020 Information not available 10/17/2022 Have You Recently Traveled Abroad? No MIGRATION.86164 94683 Information not available 10/17/2022 Do You Have Any Dietary Restrictions? No MIGRATION.42444 52884 Information not available 10/17/2022 Sex: Male Functional Status Question Answer Note LastModified by Organizat ion Details LastModified Time Do you use any illicit or recreational drugs? No MIGRATION.773512 1925 Information not available 10/17/2022 Do you or have you ever used any other forms of tobacco or nicotine? No MIGRATION.607809 6027 Information not available 10/17/2022 What is your level of alcohol consumption? None MIGRATION.181284 5421 Information not available 10/17/2022 Do you or have you ever used smokeless tobacco? Never used smokeless tobacco MIGRATION.848740 6873 Information not available 10/17/2022 Are you currently employed? Yes Information not available 09/18/2023 Have you been exposed to chemicals or toxins? Not that aware of Information not available 09/18/2023 What is your occupation? [employer] MIGRATION.078088 4556 Information not available 10/17/2022 Do you or have you ever used e-cigarettes or vape? Never used electronic cigarettes MIGRATION.560577 1523 Information not available 10/17/2022 What is your exercise level? Occasional MIGRATION.150142 7561 Information not available 10/17/2022 Mental Status Question Answer Note LastModified by Organization D etails LastModified Time Do you feel stressed (tense, restless, nervous, or anxious, or unable to sleep at night)? [id number] Information not available 08/26/2023 Family History Relationship Description Onset Age of this Age Resolved Age Notes LastModified by Organization Details LastModified Time Mother Diabetes mellitus [id number].[id number] Not available 10/17/2022 01:05:32 Mother Hypertensive disorder MIGRATION.017 [id number] Not available 10/17/2022 01:05:32 Sister Diabetes mellitus MIGRATION.640 [id number] Not available 10/17/2022 01:05:32 Sister Hypertensive disorder [email or web address] Not available 2023 10:02:40 Sister Obstructive sleep apnea syndrome [email or web address] Not available 2023 10:01:51 Brother Malignant neoplasm of lung MIGRATION.533 [id number] Not available 10/17/2022 01:05:32 Son Obstructive sleep apnea syndrome [email or web address] Not available 2023 10:01:56 Maternal Grandfather Heart disease [email or web address] Not available 2023 10:02:09 Paternal Grandmother Heart disease [email or web address] Not available 2023 10:02:17 Paternal Grandmother Malignant tumor of colon [email or web address] Not available 2023 10:02:32 Maternal Uncle Heart disease [email or web address] Not available 2023 10:03:00 Maternal Aunt Heart disease [email or web address] Not available 2023 10:03:03 Medical History Condition Response DIABETES, TYPE Y OTHER # 1 Y HYPERTENSION Y HIGH CHOLESTEROL / HYPERLIPIDEMIA Y Immunizations Vaccine Type Date Status Note Provider Nam e and Address Organization Details Recorded Time zoster recombinant 4 completed ESTUARDO Bush, [place] - [facility] [employer] 01/20/2024 14:33:36 Influenza, split virus, quadrivalent, preservative 9 completed Not Available [facility] 10/17/2022 01:20:20 Influenza, split virus, quadrivalent, PF 2 completed Not Available [facility] 10/17/2022 01:20:20 Tdap 9 completed Not Available [employer] 10/17/2022 01:20:20 Influenza, split virus, quadrivalent, PF 9 completed Not Available [facility] 10/17/2022 01:20:20 Past Encounters Encounter ID Performer Location Encounter Start Date Encounter Closed Date Diagnosis/Indication Diagnosis SNOMED-CT Code Diagnosis ICD10 Code Diagnosis Note [id number] Summer Ross MD [facility] [place] [address] [place] [address] 10/24/2020 00:00:00 10/24/2020 16:34:12 [id number] Angella Huber, [facility] [place] [address] [place] [address] 11/02/2020 00:00:00 11/02/2020 16:52:02 [id number] Ninoska kang MD [facility] [place] [address] [place] [address] 11/30/2020 00:00:00 11/30/2020 16:22:41 [id number] [facility] [place] [address] [place] [address] 03/22/2021 00:00:00 03/22/2021 14:08:05 [id number] Ninoska kang MD [facility] [place] [address] [place] [address] 04/18/2021 00:00:00 04/19/2021 09:22:00 [id number] Ninoska kang MD [facility] [place] [address] [place] [address] 10/31/2021 00:00:00 11/02/2021 18:33:18 [id number] [facility] [place] [address] [place] [address] 11/16/2021 00:00:00 11/16/2021 13:20:21 [id number] Summer Ross MD [facility] [place] [address] [place] [address] 12/08/2021 00:00:00 12/08/2021 17:11:15 [id number] [facility] _ATHENA_M IGRATION_ DEFAULT_1 _1 , 01/25/2022 00:00:00 01/25/2022 20:16:19 [id number] Angella Huber, ANIMAL TAXONOMIST-[facility] [place] [address] [place] [address] 03/20/2022 00:00:00 03/20/2022 12:52:40 [id number] Ninoska kang MD [facility] [place] [facility] [address] [address] 06/26/2022 00:00:00 06/27/2022 17:54:31 [id number] Summer Ross MD [facility] [place] [address] [place] [address] 07/06/2022 00:00:00 07/06/2022 17:05:42 [id number] Ninoska kang MD [facility] [address] [address] 11/13/2022 16:43:38 11/13/2022 17:57:19 Screening - NAD 172888219 Z13.9 C-scope: Get this Should do yearly flu shotUTD on Tdap 09/10/18Ge t COVID 19 vaccine, if not follow all CDC guidelines 04/17/2021 :Letter given stating that he can carry in insulin and its supplies while flying RTC in 3 monthGet labsER if any symptoms worsen,he did verbalize his understand ing of the above Essential hypertension 44533592 I10 On losartan HCTZ Does wellGet labs Hyperlipidemia 18107395 E78.5 On atorvastat in 40mg dailyOn vascepa Type 2 jenny betes mellitus without complication 779555861 E11.9 On glimepride On jardianceO n trescibaOn trulicmarissa Did see Dr Ross, next 07/06/[address] Fran ayala did see the eye MD as per his history Obstructiv e sleep apnea syndrome 62112866 G47.33 On CPAPSees Angella Horn NURSING SUPPORT WORKER Thyroid nodule 966139201 E04.1 02/06/19: thyroid bx, result is benign Erythrocytosis 234598553 D75.[address] Aleman On ASAOn phlebotomy Screening for malignant neoplasm of prostate 592105845 Z12.5 [id number] Summer Ross MD [facility] [place] [address] [place] [address] 03/29/2023 14:39:20 03/29/2023 15:05:39 Uncontrolled type 2 diabetes mellitus 433759485 E11.65 a1c of 9.1%- patient cannot tolerate metformin / had swelling- he would benefit from insulin second worker due to high insulin requiremen ts and continued postprandi al hyperglyce jeannine. Trial on pioglitazo ne 30 mg daily as he has no hx of CHF. Continue on tresiba 60 units at bedtime along with titration scale, jardiance 25 mg daily and glimepirid e scale. Continue on mounjaro 7.5 mg once weekly with large meal. Discussed carb counting and how to read food labels. Recommende d patient to utilize the diabetesfo NUMBER26.Iron.io from the ADA website to help with food preparatio n as this presents ideal carb content per meal so this will make carb counting much easier for patient. Recommende d he incorporat e natural insulin second worker s such as pears, apples, cinnamon, genaro and sweet potatoes to help mobilize his endogenous insulin. Recommende d up to 150 minutes of moderate level activity/e xercise weekly. Weight gain 3013303 R63. 5 Will send for low dose dexa suppressio n testing to screen for hypercorti solic state. Vitamin B1 2 deficiency (non anemic) 82850003 E53.8 Trial on B12 injections as patient continues to have fatigue even on oral supplement ation. He is aware to stop in lieu of new treatment. Spent up to 25 minutes preparing to see the patient (eg, review of tests), obtaining and/or reviewing separately obtained history, performing a medically appropriat e examinatio n and evaluation , counseling and educating the patient, ordering medication s, tests, along with documentin g clinical informatio n in the electronic health record, independen tly interpreti ng results and communicat ing results to the patient. Patient can be followed by PCP - she/he is aware of my resignatio n and last day of May 31. If needed his/her PCP can refer patient to another endocrinol ogist in the area. All questions /concerns answered and refills necessary at visit today. [id number] Angella Huber, ANIMAL TAXONOMIST-[facility] [place] [address] [place] [address] 04/26/2023 14:03:49 04/26/2023 15:05:10 Obstructive sleep apnea syndrome 49942751 G47.33 Restudied as a home study 02/04/19 with AHI 47.8.Accor ding to study he had twice the number of central apneas as obstructiv e.Insuranc e denied in-lab study.Orde r at that time for APAP 6-18.Gloria ne was originally set up 06/14/17Do wnload today from 02/14/22 to 03/15/22 with 80% use greater than 4 hoursMedia n pressure 7.9Remains on APAP 6-18AHI is 4.8He has good use and clinical benefit.OS A is well correctedE ncouraged 100% compliance with all sleepFollo w with PCM for labsAdvise d good sleep habits and patterns:- Set a goal for at least 7 to 8 hours of sleep time per day.-Use the bed mainly for sleep and to go to bed only when tired. If unable to fall asleep after 30 minutes, patient should get out of bed but should not engage in any activity that requires sustained mental alertness. -Maintain a regular bedtime and wake-up time even on weekends or days off of work.-Avoi d excessive naps during the daytime. If a nap is necessary, limit it to no more than 30 minutes.-M inimize environmen zia noise, bright lights, and extremes in bedroom temperatur e.-Avoid alcohol, caffeinate d beverages, and nicotine products for at least 6 hours prior to bedtime.-A void strenuous exercise and large meals for at least 4 hours prior to bedtime.Or giulia for new PAP todayRTC for compliance visit as directed by insurance [id number] Pk Doss DPM [facility] [address] [place] [address] 06/17/2023 14:29:26 06/17/2023 17:09:27 Diabetes mellitus 57638606 E11.41 Patient educated on neuropathy , diabetes, diabetic diet, and daily foot exams. Patient is to check feet daily for new wounds, blisters, redness to prevent infection and ulceration s to the feet. Patient will return to clinic in 3 months for diabetic foot workup. Dystrophia unguium 69282 009 L60.3 Nails debrided without incident Peripheral venous insufficiency 58943229 I87.2 Rx compressio n stocking- Recommend daily use [id number] Ninoska kang MD [facility] [place] [address] [facility] , [place] [address] 08/26/2023 10:33:12 08/26/2023 11:56:14 Screening - NAD 282171706 Z13.9 C-scope: Get this Should do yearly flu shotUTD on Tdap 09/10/18Ge t COVID 19 vaccine, if not follow all CDC guidelines 04/17/2021 :Letter given stating that he can carry in insulin and its supplies while flying RTC in 4 monthGet labsER if any symptoms worsen,he did verbalize his understand ing of the above Essential hypertension 19994080 I10 On losartan HCTZ Does wellGet labs Hyperlipidemia 34918661 E78.5 On atorvastat in 40mg dailyOn vascepa Type 2 jenny betes mellitus without complication 235470076 E11.9 On actosOn glimepride 2mg dailyOn jardiance 25mg dailyOn trescibaOn Mounjaro Not on trulicity Did see Dr Angelo ayala did see the eye MD as per his history Obstructiv e sleep apnea syndrome 16480139 G47.33 On CPAPSeen Angella Horn NURSING SUPPORT WORKER Thyroid nodule 737465995 E04.1 02/06/19: thyroid bx, result is benign Erythrocytosis 151257027 D75.[address] Aleman On ASAOn phlebotomy Screening for malignant neoplasm of prostate 147939669 Z12.5 Upper resp iratory infection 84710779 J06.9 Seen in [facility] 08/20/2023 , xray Chest 08/20/2023 Is doing wellIs on augmentin 875mg po bidIs on tessalon PRN Screening for malignant neoplasm of colon 121931776 Z12.11 Vitamin D deficiency 347 63719 E55.9 [id number] Flako Martinez MD [facility] [place] [address] [facility], [facility] [address] [place] [address] 09/18/2023 09:13:33 09/19/2023 15:25:38 Obstructive sleep apnea syndrome 36370573 G47.33 [id number] Ninoska kang MD [facility] [address], [facility] [place] [address] 01/27/2024 15:48:09 01/27/2024 16:48:02 Screening - NAD 591491399 Z13.9 C-scope: Get this Should do yearly flu shotUTD on Tdap 09/10/18Ge t COVID 19 vaccine, if not follow all CDC guidelines 04/17/2021 :Letter given stating that he can carry in insulin and its supplies while flying RTC in 4 monthGet labsER if any symptoms worsen,he did verbalize his understand ing of the above Essential hypertension 14553227 I10 On losartan HCTZ Does wellGet labs Hyperlipidemia 79322405 E78.5 On atorvastat in 40mg dailyOn vascepa Type 2 jenny betes mellitus without complication 016871284 E11.9 On actosOn glimepride 2mg dailyOn jardiance 25mg dailyOn trescibaOn Mounjaro, will increase to 10mg weekly as per his request Not on trulicity Did see Dr Angelo ayala did see the eye MD as per his history Obstructiv e sleep apnea syndrome 58994393 G47.33 On CPAPSeen Angella Horn NURSING SUPPORT WORKER Thyroid nodule 525466750 E04.1 02/06/19: thyroid bx, result is benign Erythrocytosis 296317088 D75.[address] Aleman On ASAOn phlebotomy Upper resp iratory infection 39752422 J06.9 Seen in [facility] 08/20/2023 , xray Chest 08/20/2023 Is doing wellIs on augmentin 875mg po bidIs on tessalon PRN Screening for malignant neoplasm of colon 164676959 Z12.11 Vitamin D deficiency 347 71166 E55.9 [id number] Ninoska kang MD [facility] [place] [address] [facility] [address] [place] [place] [address] 05/04/2024 15:03:25 05/04/2024 15:58:16 Screening - NAD 184917846 Z13.9 C-scope: Ordered cologuard as per his wishes 05/04/2024 , understand s that if this is positive will need to do c-scope Should do yearly flu shotUTD on Tdap 09/10/18Ge t COVID 19 vaccine, if not follow all CDC guidelines 04/17/2021 :Letter given stating that he can carry in insulin and its supplies while flying RTC in 4 monthGet labsER if any symptoms worsen,he did verbalize his understand ing of the above Essential hypertension 04030031 I10 On losartan HCTZ Does wellGet labs Hyperlipidemia 39603526 E78.5 On atorvastat in 40mg dailyOn vascepa Type 2 jenny betes mellitus without complication 193817003 E11.9 On actosOn glimepride 2mg dailyOn jardiance 25mg dailyOn trescibaOn Mounjaro, will increase to 12.5 mg weekly, does very well, no MEN2/MCT, parathyroi d or pancreatic complaints , advised to take his supplement s, hydrate, notify surgeon if having any surgery Not on trulicity Did see Dr Angelo ayala did see the eye MD as per his history Obstructiv e sleep apnea syndrome 24764030 G47.[address] Martinez 09/17/2024 Thyroid nodule [id number] E04.1 02/06/19: thyroid bx, result is benign Erythrocytosis 034989718 D75.[address] Aleman On ASAOn phlebotomy Screening for malignant neoplasm of colon 533135142 Z12.11 Vitamin D deficiency 347 53209 E55.9 Serum ezio min B12 below reference range 133414598 R79.89 [id number] Flako Martinez MD [facility] [address], [address] [place] [address] 09/17/2024 10:25:22 09/17/2024 11:59:09 Obstructive sleep apnea syndrome 65203073 G47.33 [id number] Ninoska kang MD [facility] [place] [address] [address] [facility] [address] [place] [address] 09/21/2024 11:23:57 09/21/2024 12:41:33 Screening - NAD [id number] Z13.9 C-scope: Ordered cologuard as per his wishes 05/04/2024 , understand s that if this is positive will need to do c-scopeCol oguard: 07/26/2024 : Neg Should do yearly flu shotUTD on Tdap 09/10/18Ge t COVID 19 vaccine, if not follow all CDC guidelines 04/17/2021 :Letter given stating that he can carry in insulin and its supplies while flying RTC in 4 monthGet labsER if any symptoms worsen,he did verbalize his understand ing of the above Essential hypertension [id number] I10 On losartan HCTZ Does wellGet labs Hyperlipidemia 87900983 E78.5 On atorvastat in 40mg dailyOn vascepa Type 2 jenny betes mellitus without complication 748640425 E11.9 On actosOn glimepride 2mg dailyOn jardiance 25mg dailyOn trescibaOn Mounjaro,1 5mg weekly, does very well, no MEN2/MCT, parathyroi d or pancreatic complaints or psychiatry complaints , advised to take his supplement s, hydrate, notify surgeon if having any surgery Not on trulicity Did see Dr Angelo ayala did see the eye MD as per his history Obstructiv e sleep apnea syndrome 98133002 G47.[address] Martinez 09/17/2024 Thyroid nodule 896404120 E04.1 02/06/19: thyroid bx, result is benign Erythrocytosis 233268591 D75.[address] Aleman On ASAOn phlebotomy Screening for malignant neoplasm of colon 781475639 Z12.11 Vitamin D deficiency 347 49611 E55.9 Serum ezio min B12 below reference range 368585897 R79.89 [id number] Ninoska kang MD [facility] [place] [address] [facility] [address] [place] [address] 02/03/2025 15:04:56 02/03/2025 15:53:27 Screening - NAD 138763116 Z13.9 C-scope: Ordered cologuard as per his wishes 05/04/2024 , understand s that if this is positive will need to do c-scopeCol oguard: 07/26/2024 : Neg Should do yearly flu shotUTD on Tdap 09/10/18Ge t COVID 19 vaccine, if not follow all CDC guidelines 04/17/2021 :Letter given stating that he can carry in insulin and its supplies while flying RTC in 4 monthGet labsER if any symptoms worsen,he did verbalize his understand ing of the above Essential hypertension 03089075 I10 On losartan HCTZ Does wellGet labs Hyperlipidemia 40836710 E78.5 On atorvastat in 40mg dailyOn vascepa Type 2 jenny betes mellitus without complication 123933449 E11.9 On actosOn glimepride 2mg dailyOn jardiance 25mg dailyOn trescibaOn Mounjaro,1 5mg weekly, does very well, no MEN2/MCT, parathyroi d or pancreatic complaints or psychiatry complaints , advised to take his supplement s, hydrate, notify surgeon if having any surgery Not on trulicity Did see Dr Angelo aayla did see the eye MD as per his history Sees Dr Vidal 01/01/2025 , next apt is on 03/31/2025 Got US L NUZHAT 01/01/2025 Obstructiv e sleep apnea syndrome 01355587 G47.[address] Martinez Thyroid nodule 149151248 E04.1 02/06/19: thyroid bx, result is benign Erythrocytosis 497177683 D75.[address] Aleman On ASAOn phlebotomy Vitamin D deficiency 347 76137 E55.9 Serum ezio min B12 below reference range 623839544 R79.89 Health Concerns Section Related Observation LastModified by Organization Detai ls LastModified Time None Recorded Concern Status LastModified by Organization Details LastModified Time None Recorded Advance Directives Directive N: Payers Insurance Date Sequence Insurance Name Policy Number Policy Carty Covered Member ID Carty Member ID Guarantor Name 01/31/2025 1 [employer] [id number] Sergio Antunez [id number] Sergio Antunez Notes Date Note Type Note Provider Name and Address Organization Details Recorded Time 01/27/2024 text/html Here to stuart Patel Hx:HTNHLDDMIIObesityRe viewed social family and surgical historyNeeds to discuss above and also get labsHe does state that he does have some fatigue and thus wants the labs, 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, and feels tired alsoHas some excessive sleepOV 09/10/18:Here for his routine aptHe states that he is doing well at this timeNo recent labs doneOV 01/14/19:Here for his routine aptNo recent labs noted, he did see Dr Sanchez also has noted some LBP, he was prescribed some flexerill but this has not helped muchHe denies any acute or remote injury to the back, but he was pulling weeds at the yardNo N/T in the legs, no B/B incontinence notedOV 04/13/19:He is here for his routine aptHe did do the labs but at the quest on SaturdayFeels well at this timeOV 07/27/19:Here for a note for workWas noted to have some diarrheaIt was for about a day and a half and has completely resolved todayNo N/VNo blood in stoolNo fevers or chillsOV 08/24/2020:Here for his routine aptHe feels wellHe did do the labsOV 11/30/2020:Here for his tele visitHe is agreeable to do the tele visitHe feels wellHe did do the labs on 10/20/2020OV 04/18/2021:Here for his routine aptHe is doing wellHe did do the labs on 04/05/2021 OV 10/31/2021:Here for his routine aptHe is doing wellNo new labs doneOV 06/26/2022:Here for his f/u apt, he is doing well, he did do the labs on 06/21/2022 OV 11/13/2022:Here for his f/u apt, he is doing well today OV 08/26/2023: Here for f/u apt, tele visit, he is agreeable to do the tele visitIs feeling better, still has a cough, no fevers now, is on augmentin, labs done in the ER, does need routine labs OV 01/27/2024: Here for his f/u apt, he is doing very well, here with his son, he would like to increase his mounjaro dose, feels that the 7.5mg dose is not 'working' has tolerated the Mounjaro very well Ninoska Shaver MD [address] [facility], [address], [place], [address], [facility] [employer] 01/27/2024 16:46:39 05/04/2024 text/html Here to stuart Patel Hx:HTNHLDDMIIObesityRe viewed social family and surgical historyNeeds to discuss above and also get labsHe does state that he does have some fatigue and thus wants the labs, 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, and feels tired alsoHas some excessive sleepOV 09/10/18:Here for his routine aptHe states that he is doing well at this timeNo recent labs doneOV 01/14/19:Here for his routine aptNo recent labs noted, he did see Dr Sanchez also has noted some LBP, he was prescribed some flexerill but this has not helped muchHe denies any acute or remote injury to the back, but he was pulling weeds at the yardNo N/T in the legs, no B/B incontinence notedOV 04/13/19:He is here for his routine aptHe did do the labs but at the quest on SaturdayFeels well at this timeOV 07/27/19:Here for a note for workWas noted to have some diarrheaIt was for about a day and a half and has completely resolved todayNo N/VNo blood in stoolNo fevers or chillsOV 08/24/2020:Here for his routine aptHe feels wellHe did do the labsOV 11/30/2020:Here for his tele visitHe is agreeable to do the tele visitHe feels wellHe did do the labs on 10/20/2020OV 04/18/2021:Here for his routine aptHe is doing wellHe did do the labs on 04/05/2021 OV 10/31/2021:Here for his routine aptHe is doing wellNo new labs doneOV 06/26/2022:Here for his f/u apt, he is doing well, he did do the labs on 06/21/2022 OV 11/13/2022:Here for his f/u apt, he is doing well today OV 08/26/2023: Here for f/u apt, tele visit, he is agreeable to do the tele visitIs feeling better, still has a cough, no fevers now, is on augmentin, labs done in the ER, does need routine labs OV 01/27/2024: Here for his f/u apt, he is doing very well, here with his son, he would like to increase his mounjaro dose, feels that the 7.5mg dose is not 'working' has tolerated the Mounjaro very well OV 05/04/2024: Here for his f/u apt, he is doing well today, no new labs Ninoska Shaver MD [address] [place] [address], [place], [address], [place] [facility] [employer] 05/04/2024 17:35:58 09/17/2024 text/html Primary care/Ref erring provider: Ninoska Shaver MD During the [facility] home sleep study on 05/21/17, AHI = 28, supine AHI = 44. During the [facility] home sleep study on 02/04/19, AHI = 48. At home since 09/18/23, the patient uses a [employer] AirSense 11 autoset unit with heated humidification. The patient does not need the ramp to start low and go up slowly on the pressure anymore. There is some xerostomia in a.m. There is no hose/mask condensation with water.The patient wears a nasal mask without chin strap. There is no claustrophobia, no nostril/nose bridge irritation, no facial rash, no facial numbness, no nosebleeding. The patient feels more refreshed upon waking and daytime alertness is improved. Energy levels are sustained for 3 hours after waking up. The patient works from 6 pm to 6 am. At home, the patient sleeps from 8 am to 3 pm and wakes up with an alarm. Snoring: heavy, since .Snorting: noChoking: noCoughing: noGasping: noGagging: noSighing: noWitnessed apnea: yesTwitching or jerking of leg(s), arm(s), body, head: noTeeth grinding: noTeeth clenching: noSleeptalking: noSleepwalking: noSleep crying: noBedwetting: noTongue/lip/gum/cheek biting: noSleeping with open mouth: yesSleep paralysis: noHypnagogic hallucinations: noHypnopompic hallucinations: noVivid dreams: yesDifficulty with sleep onset: noDifficulty with sleep maintenance: yesSleep interruptions: nocturia x 3Patient wakes up with: fatigue, xerostomia, mobility impairmentDaytime cataplexy: noMorning hypersomnolence: yesAfternoon hypersomnolence: yesCaffeine sources in diet: soda 2 liters per day, chocolate 1 candy bar per week Associated medical and psychiatric conditions:Congestive heart failure: noCoronary artery disease: noMyocardial infarction: noHypertension: yesStroke: noBronchial asthma: noChronic obstructive pulmonary disease: noDepression: noBipolar disorder: noAnxiety: noPanic disorder: noPosttraumatic stress disorder: noAttention deficit and hyperactivity disorder: noObsessive Compulsive disorder: noSchizophrenia: noSchizoaffective disorder: noPersonality disorder: noChronic analgesic use: noChronic sedative/hypnotic use: no EPWORTH SLEEPINESS SCALE (ESS) CHANCE OF DOZING SCORE0 = would never doze1 = slight chance of dozing2 = moderate chance of dozing3 = high chance of dozing SITUATION AND CHANCE OF DOZINGSitting and reading - 3Watching television - 3Sitting inactive in a public place (e.g. a theater or meeting) - 2As a passenger in a car for an hour without a break - 1Lying down to rest in the afternoon when circumstances permit - 3Sitting and talking to someone - 0Sitting quietly after lunch without alcohol - 3In a car, while stopped for a few minutes in the traffic - 0TOTAL SCORE 15Subjectively, patient has a moderate chance of dozing. 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, and feels tired alsoHas some excessive sleepOV 09/10/18:Here for his routine aptHe states that he is doing well at this timeNo recent labs doneOV 01/14/19:Here for his routine aptNo recent labs noted, he did see Dr Sanchez also has noted some LBP, he was prescribed some flexerill but this has not helped muchHe denies any acute or remote injury to the back, but he was pulling weeds at the yardNo N/T in the legs, no B/B incontinence notedOV 04/13/19:He is here for his routine aptHe did do the labs but at the quest on SaturdayFeels well at this timeOV 07/27/19:Here for a note for workWas noted to have some diarrheaIt was for about a day and a half and has completely resolved todayNo N/VNo blood in stoolNo fevers or chillsOV 08/24/2020:Here for his routine aptHe feels wellHe did do the labsOV 11/30/2020:Here for his tele visitHe is agreeable to do the tele visitHe feels wellHe did do the labs on 10/20/2020OV 04/18/2021:Here for his routine aptHe is doing wellHe did do the labs on 04/05/2021 OV 10/31/2021:Here for his routine aptHe is doing wellNo new labs doneOV 06/26/2022:Here for his f/u apt, he is doing well, he did do the labs on 06/21/2022 OV 11/13/2022:Here for his f/u apt, he is doing well today OV 08/26/2023: Here for f/u apt, tele visit, he is agreeable to do the tele visitIs feeling better, still has a cough, no fevers now, is on augmentin, labs done in the ER, does need routine labs OV 01/27/2024: Here for his f/u apt, he is doing very well, here with his son, he would like to increase his mounjaro dose, feels that the 7.5mg dose is not 'working' has tolerated the Mounjaro very well OV 05/04/2024: Here for his f/u apt, he is doing well today, no new labs OV 09/21/2024: Here for his routine apt, he feels very well today, no new labs Ninoska Shaver MD [address] [facility], [facility] [address], [place], [address], [facility] [employer] 09/23/2024 08:43:02 02/03/2025 text/html Here to stuart Patel Hx:HTNHLDDMIIObesityRe viewed social family and surgical historyNeeds to discuss above and also get labsHe does state that he does have some fatigue and thus wants the labs, 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, and feels tired alsoHas some excessive sleepOV 09/10/18:Here for his routine aptHe states that he is doing well at this timeNo recent labs doneOV 01/14/19:Here for his routine aptNo recent labs noted, he did see Dr Sanchez also has noted some LBP, he was prescribed some flexerill but this has not helped muchHe denies any acute or remote injury to the back, but he was pulling weeds at the yardNo N/T in the legs, no B/B incontinence notedOV 04/13/19:He is here for his routine aptHe did do the labs but at the quest on SaturdayFeels well at this timeOV 07/27/19:Here for a note for workWas noted to have some diarrheaIt was for about a day and a half and has completely resolved todayNo N/VNo blood in stoolNo fevers or chillsOV 08/24/2020:Here for his routine aptHe feels wellHe did do the labsOV 11/30/2020:Here for his tele visitHe is agreeable to do the tele visitHe feels wellHe did do the labs on 10/20/2020OV 04/18/2021:Here for his routine aptHe is doing wellHe did do the labs on 04/05/2021 OV 10/31/2021:Here for his routine aptHe is doing wellNo new labs doneOV 06/26/2022:Here for his f/u apt, he is doing well, he did do the labs on 06/21/2022 OV 11/13/2022:Here for his f/u apt, he is doing well today OV 08/26/2023: Here for f/u apt, tele visit, he is agreeable to do the tele visitIs feeling better, still has a cough, no fevers now, is on augmentin, labs done in the ER, does need routine labs OV 01/27/2024: Here for his f/u apt, he is doing very well, here with his son, he would like to increase his mounjaro dose, feels that the 7.5mg dose is not 'working' has tolerated the Mounjaro very well OV 05/04/2024: Here for his f/u apt, he is doing well today, no new labs OV 09/21/2024: Here for his routine apt, he feels very well today, no new labs OV 02/03/2025: Here for his f/u apt, he is doing well today Ninoska Shvaer MD [address], [facility] [address], [place], [address], [place] [facility] 02/03/2025 18:56:57
--- OUTSIDE RECORDS SUMMARY | 2025-02-22 09:13 | XMS_ITS | Clinical Summary ---
Author Organization [facility] Address [address] [facility] [address] Care Team Providers Care Electroencephalographic Technician Name Role Phone Ninoska Shaver MD Primary Care Provider Allergies Active Allergy Reactions Criticality Noted Date Comments Metformin Hives,Swelling High 12/16/2014 Medications atorvastatin (LIPITOR) 40 mg tablet atorvastatin 40 mg tablet TAKE 1 TABLET BY MOUTH EVERY DAY Active glimepiride (AMARYL) 2 mg tablet glimepiride 2 mg tablet TAKE 1 TABLET BY MOUTH TWICE A DAY WITH MEALS Active empagliflozin (Jardiance) 25 mg tablet Jardiance 25 mg tablet TAKE 1 TABLET BY MOUTH EVERY MORNING Active losartan-hydro CHLOROthiazide (HYZAAR) 50-12.5 mg tablet losartan 50 mg-hydrochlorothia zide 12.5 mg tablet TAKE 1 TABLET BY MOUTH EVERY DAY Active blood sugar diagnostic (Accu-Chek Natividad Plus test strp) Strip Accu-Chek Natividad Plus test strips Take 1 strip twice a day by miscell. route. Active Insulin [place], Disposable, (BD Ultra-Fine Mini Pen Needle) 31 gauge x 3/16 Needle BD Ultra-Fine Mini Pen Needle 31 gauge x 3/16 Active ergocalciferol (VITAMIN D2) 50,000 unit capsule ergocalciferol (vitamin D2) 1,250 mcg (50,000 unit) capsule TAKE 1 CAPSULE BY MOUTH ONE TIME PER WEEK Active ibuprofen (MOTRIN) 800 mg tablet ibuprofen 800 mg tablet Active ketoconazole (NIZORAL) 2 % Cream ketoconazole 2 % topical cream APPLY TO AFFECTED AREA TWICE A DAY Active meloxicam (MOBIC) 15 mg tablet meloxicam 15 mg tablet Active aspirin (ECOTRIN EC) 81 mg Tablet, Delayed Release (E.C.) Take 81 mg by mouth daily. Active icosapent ethyL (Vascepa) 1 gram Capsule Vascepa 1 gram capsule TAKE 2 CAPSULES BY MOUTH TWICE A DAY Active tirzepatide (Mounjaro) 7.5 mg/0.5 mL Pen Injector Inject by subcutaneous injection. Active insulin degludec (Tresiba FlexTouch U-100) 100 unit/mL pen syringe Inject by subcutaneous injection. Active losartan (COZAAR) 25 mg tablet Take 25 mg by mouth daily. Active Active Problems Problem Noted Date Diagnosed Date Erythrocytosis 11/02/2020 Encounters Date Type Department Care Team Description 02/12/2025 Abstract [facility] Oncology and Hematology [facility] [address] [place] [address] Stephane Aleman MD 02/12/2025 Orders Only [facility] Oncology and Hematology [facility] [address] [place] [address] Stephane Aleman MD Erythrocytosis (Primary Dx) from Last 3 Months Family History Relation Name Status Comments Brother Daughter 1 Alive Daughter 2 Alive Father Alive Mother Sister 1 Alive Sister 2 Alive Son Alive Social History Tobacco Use Types Packs/Day Years Used Date Smoking Tobacco: Never Smokeless Tobacco: Never Tobacco Cessation:Counseling Given: Not Answered Alcohol Use Standard Drinks/Week Comments Never 0 (1 standard drink = 0.6 oz pur e alcohol) Sex and Gender Information Value Date Recorded Sex Assigned at Not on file 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[employer] Gender Identity Not on file Sexual Orientation Not on file Last Filed Vital Signs Vital Sign Reading Time Taken Comments Blood Pressure 140/79 06/03/2023 2:14 PM CDT Pulse 80 06/03/2023 2:14 PM CDT Temperature 36.3 C (97.4 F) 06/03/2023 2:14 PM CDT Respiratory Rate 10 12/03/2022 1:13 PM CDT Oxygen Saturation 97% 12/03/2022 1:13 PM CDT Inhaled Oxygen Concentration - - Weight 155.6 kg (343 lb) 06/03/2023 2:14 PM CDT Height 188 cm (6' 2) 05/29/2022 1:03 PM CDT Body Mass Index 44.04 05/29/2022 1:03 PM CDT Plan of Treatment Health Maintenance Due Date Last Done Comments DIABETES ANNUAL FOOT EXAM 1988 DIABETES ANNUAL RETINAL EXAM 1988 DIABETES HBA1C Q 6 MONTHS 1988 DIABETES MICROALBUMIN ANNUAL SCREEN 1988 LDL CHOLESTEROL ANNUAL 1988 HEPATITIS B VACCINES (1 of 3 - 19+ 3-dose series) 1989 COLORECTAL SCREENING 2015 Colorectal Cancer Screening 2015 FIT-DNA Q 3 years 2015 FIT/FOBT Q 1 year 2015 Flex Sig/CT Colonography Q 5 years 2015 ZOSTER VACCINE (2 of 2) 02/10/2024 12/16/2023 INFLUENZA VACCINE (#1) 2025 2, 07/06/2019, 09/10/2018 DTAP/TDAP/TD VACCINES (2 - T d or Tdap) 09/10/2028 09/10/2018 Insurance [employer] TRADITIONAL Care Teams Electroencephalographic Technician Relationship Specialty Start Date End Date Ninoska Shaver MD PCP - General Internal Medicine 11/02/20
== END 2025-02-22 09:02 | disposition home or self-care (01) ==
PROVIDERS: PCP Internal Medicine; Visit Provider Internal Medicine
DX: E78.5 Hyperlipidemia, unspecified (principal); E11.9 Type 2 diabetes mellitus without complications; I10 Essential (primary) hypertension; E66.01 Morbid (severe) obesity due to excess calories; Z71.3 Dietary counseling and surveillance
CPT/HCPCS: 93922